=== PATIENT | female | born 1995 | race Caucasian/White ===

== ENCOUNTER 2018-12-16 15:15 | Outpatient (REF) | payer OTHER, SELFPAY ==
[2018-12-19 14:36] LABS: Chlamydia Result Negative; GC Result Negative; Specimen Description CERVIX
== END 2018-12-16 15:35 ==
LOC: LBN 15:15
PROVIDERS: Visit Provider Nurse Practitioner Women's Health
DX: Z11.3 Encounter for screening for infections with a predominantly sexual mode of transmission (principal)
CPT/HCPCS: 87491; 87591

== ENCOUNTER 2020-01-29 08:41 | Outpatient (REF) | payer OTHER, SELFPAY ==
--- NOTE | 2020-01-29 08:20 | PAPFT_PTH ---
PATIENT: Susanne Quezada LOC: [facility] U#:[id number] AGE/SX: 24/F ROOM: RE01/29/[address]: DEAN Ross : 1995 BED: DIS: 01/29/2020 SPEC #: [id number] RECD: 01/29/20 12:27 STATUS: DARCIE REJose #: [id number] SHAYAN: 01/29/20 08:[address]: Madelaine Davidson DEPT: [facility] Cytology RECD BY: Julio Gillespie ENTERED: 01/29/20 12:28 SP TYPE: PAPFT OTHR DR: Aria Andrews, Tissues: 1 - CX/ENDOCX FOR PAP SMEARS Procedures: PAP THIN PREP/[facility] Screening Comments: [id number]
[2020-01-30 12:54] LABS: Chlamydia Result Negative (Negative); GC Result Negative (Negative)
== END 2020-01-29 09:01 ==
LOC: LBN 08:41
PROVIDERS: PCP Student in an Organized Health Care Education/Training Program; Visit Provider Nurse Practitioner Family
DX: R30.0 Dysuria (principal); Z11.3 Encounter for screening for infections with a predominantly sexual mode of transmission; Z12.4 Encounter for screening for malignant neoplasm of cervix
CPT/HCPCS: 87491; 87591; 88142; 87086

== ENCOUNTER 2020-02-26 18:53 | Outpatient (REF) | payer OTHER, SELFPAY | END 2020-02-26 19:13 | LOC: LBN 18:53 | PROVIDERS: PCP Student in an Organized Health Care Education/Training Program; Visit Provider Nurse Practitioner Family | DX: R82.71 Bacteriuria (principal); B95.7 Other staphylococcus as the cause of diseases classified elsewhere | CPT/HCPCS: 87077; 87086; 87186 ==